=== PATIENT | male | born 1990 | race Caucasian/White ===

== ENCOUNTER 2018-04-04 12:36 | Observation (INO) | payer OTHER ==
[2018-04-03 11:53] LABS: ADD MAN DIFF? NO
[2018-04-03 11:58] LABS: BASOPHILS % 0.7 % (0.0-2.0); EOSINOPHILS # 0.1 10^3/ul (0.0-0.5); EOSINOPHILS % 0.8 % (0.0-7.0); HEMATOCRIT 44.2 % (42.0-52.0); HEMOGLOBIN 14.9 g/dl (14.0-18.0); LYMPHOCYTES # 2.1 10^3/ul (0.8-2.9); LYMPHOCYTES % 35.2 % (15.0-51.0); MEAN CORPUSCULAR HEMOGLOBIN 29.3 pg (29.0-33.0); MEAN CORPUSCULAR HGB CONC 33.7 g/dl (32.0-37.0); MEAN PLATELET VOLUME 9.4 fl (7.4-10.4); MONOCYTE # 0.4 10^3/ul (0.3-0.9); MONOCYTES % 6.9 % (0.0-11.0); NEUTROPHIL # 3.4 10^3/ul (1.6-7.5); NEUTROPHILS % 55.9 % (39.0-77.0); PLATELET COUNT 279 10^3/UL (140-415); RED BLOOD COUNT 5.08 10^6/ul (4.70-6.10); RED CELL DISTRIBUTION WIDTH 13.1 % (11.5-14.5)
[2018-04-03 11:58] LABS: WHITE BLOOD COUNT 6.1 10^3/ul (4.8-10.8)
[2018-04-03 12:00] LABS: ADD UMIC NO; UR ASCORBIC ACID NEGATIVE (NEGATIVE); UR BILIRUBIN (Dip) NEGATIVE (NEGATIVE); UR BLOOD (Dip) NEGATIVE (NEGATIVE); UR CLARITY CLEAR (CLEAR); UR COLOR YELLOW (YELLOW); UR GLUCOSE (Dip) NEGATIVE (NEGATIVE); UR KETONES (Dip) NEGATIVE (NEGATIVE); UR LEUKOCYTE ESTERASE (Dip) NEGATIVE Leu/ul (NEGATIVE); UR NITRITE (Dip) NEGATIVE (NEGATIVE); UR SPECIFIC GRAVITY (Dip) 1.017 (1.003-1.030); UR TOTAL PROTEIN (Dip) NEGATIVE (NEGATIVE); UR UROBILINOGEN (Dip) NEGATIVE (NEGATIVE)
[2018-04-03 12:31] LABS: INR 0.95; PROTIME 12.8 Sec (11.9-14.9)
[2018-04-03 12:32] LABS: PARTIAL THROMBOPLASTIN TIME 29.3 Sec (25.0-35.0)
[~2018-04-04 12:36] MED LIST: ACETAMINOPHEN 1000 MG/100 ML IVPB; CEFAZOLIN 1 GM INJ
[2018-04-04] MEDS ORDERED: PROPOFOL 20 ML ×2 (18:00→18:37)
[2018-04-04] MEDS ORDERED: MIDAZOLAM 1 MG/ML 2 ML INJ (18:00)
[2018-04-04] MEDS ORDERED: METOCLOPRAMIDE 10 MG INJ (18:00)
[2018-04-04] MEDS ORDERED: FENTAnyl 50 MCG/ML VIAL (18:00)
[2018-04-04] MEDS ORDERED: ONDANSETRON 4 MG INJ (18:00)
[2018-04-04] MEDS ORDERED: ROCURONIUM 50 MG INJ (18:00)
[2018-04-04] MEDS ORDERED: ROPIVACAINE 0.5 % 30 ML VIAL (18:08)
[2018-04-04] MEDS ORDERED: KETOROLAC 30 MG INJ (18:39)
[2018-04-04] MEDS: POLYMYXIN/BACITRACIN 1L IRRIG (18:59)
[2018-04-04] MEDS ORDERED: OXYCODONE/ACETAMINOPHEN (5/325) TAB PO ×2 (19:00)
[2018-04-04] MEDS ORDERED: HYDROmorphONE (0.2 MG/ML) 10ML SYG IV ×3 (19:00)
[2018-04-04] MEDS ORDERED: ONDANSETRON 4 MG INJ IV (19:00)
[2018-04-04] MEDS ORDERED: MEPERIDINE 25 MG INJ IV (19:00)
[2018-04-04] MEDS ORDERED: DIPHENHYDRAMINE 50 MG INJ IV (19:00)
[2018-04-04] MEDS ORDERED: morphine 2 MG INJ IV (20:00)
[2018-04-05] MEDS: HYDROCODONE/APAP (5/325) TAB PO (12:15)
== END 2018-04-05 12:45 | disposition home or self-care (01) ==
LOC: SDS 12:36 → MS1 19:58
PROVIDERS: Orthopaedic Surgery
DX: S86.011A Strain of right Achilles tendon, initial encounter (principal); X58.XXXA Exposure to other specified factors, initial encounter; Y93.39 Activity, other involving climbing, rappelling and jumping off; Y99.0 Civilian activity done for income or pay
CPT/HCPCS: 27650; 81003; 85025; 85610; 85730; 97162